=== PATIENT | male | born 2000 | race Caucasian/White ===

== ENCOUNTER 2024-02-25 14:18 | Emergency (ER) | payer OTHER ==
[2024-02-25] MEDS ORDERED: Sodium Chloride 0.9% 10 ML Syringe FLUSH PRN (14:41)
[2024-02-25] MEDS: HYDROmorphone 0.5 MG/0.5 ML Syringe IVPUSH ONE (14:55)
[2024-02-25] MEDS: Diphtheria,Pertussis(Acell),Tetanus Vaccine 0.5 ML Syringe IM ONE (15:04)
[2024-02-25] MEDS: Lidocaine 1% 5 ML VIAL INJECT ONE (15:17)
[2024-02-25] MEDS: Bacitracin Oint 1 GM U/D Packet TOP ONE (15:40)
== END 2024-02-25 15:55 | disposition home or self-care (01) ==
LOC: CC.ED 14:18
DX: S80.851A Superficial foreign body, right lower leg, initial encounter (principal); Z23 Encounter for immunization; W29.4XXA Contact with nail gun, initial encounter; Y99.0 Civilian activity done for income or pay
CPT/HCPCS: 73562-RT; 90471; 90715; 96374; 99283-25; J1170; J3490